=== PATIENT | female | born 1980 | race African-American/Black ===

== ENCOUNTER → 2024-04-14 | Emergency (ER) | payer OTHER ==
[~2024-04-14] VITALS: Ht 172.7 cm; Wt 81.6 kg
[2024-04-14 20:58] VITALS: BP 135/86; TEMP 98.5; O2SAT 99
--- NOTE | 2024-04-14 22:05 | NUR ---
CALLED NOT IN [facility]
--- NOTE | 2024-04-14 22:54 | NUR ---
NOT IN [facility]
--- NOTE | 2024-04-14 23:49 | NUR ---
PT NOT IN [facility]
== END ==
LOC: ER 20:38
DX: Z53.21 Procedure and treatment not carried out due to patient leaving prior to being seen by health care provider (principal)

== ENCOUNTER 2024-04-15 02:54 | Emergency (ER) | payer OTHER ==
[~2024-04-15] VITALS: Ht 170.2 cm; Wt 81.6 kg
[2024-04-15 03:29] VITALS: BP 146/83; TEMP 98.1; O2SAT 98
--- NOTE | 2024-04-15 03:31 | NUR ---
PT PROVIDED WITH BUS PASS.
== END 2024-04-15 03:34 | disposition home or self-care (01) ==
LOC: ER 02:57
DX: Z13.9 Encounter for screening, unspecified (principal)